=== PATIENT | male | born 1945 | race Caucasian/White ===

== ENCOUNTER 2018-09-29 01:25 | Outpatient (CLI) | payer MEDICARE, SELFPAY ==
--- NOTE | 2018-09-29 12:37 | DI.CT_ITS ---
SYMPTOMS/DIAGNOSIS: LEFT FACIAL PAIN AND HEARING LOSS, G89.[address]: There is mucus retention within several ethmoid sinuses. There is circumferential mucosal thickening of the maxillary sinuses and a mild amount of mucus in the frontal sinuses. The nasal cavity appears clear. The mastoid air cells are clear. The orbits are unremarkable. No gross abnormality is seen in the brain. IMPRESSION: Mucus retention within the ethmoid sinuses, the greatest on the right side. Milder mucosal thickening is seen elsewhere.
== END 2018-09-29 01:45 ==
PROVIDERS: PCP Emergency Medicine; Visit Provider Emergency Medicine
DX: R51 Headache (principal); H91.90 Unspecified hearing loss, unspecified ear; J34.89 Other specified disorders of nose and nasal sinuses
CPT/HCPCS: 70486

== ENCOUNTER 2020-04-06 02:39 | Outpatient (CLI) | payer MEDICARE, SELFPAY ==
--- NOTE | 2020-04-06 06:45 | DI.CT_ITS ---
EXAM: CT ABDOMEN W CLINICAL HISTORY: LUQ mass, swelling, lump, R19.02 TECHNIQUE: Imaging Protocol: Axial computed tomography images with coronal and sagittal reformatted images were created and reviewed CONTRAST MATERIAL: Intravenous: Omnipaque 350 Contrast volume:100 ml Contrast route:IV - Oral: yes COMPARISON: No exams were available for comparison FINDINGS: ABDOMEN: Lung Bases: Normal where visualized. Normal heart size. Liver: Normal density. Numerous cysts. Gallbladder and biliary tract: No radiodense calculus or dilation. Pancreas: Normal density, no abnormal calcifications or inflammatory process. Spleen: Normal size. 3.7 cm peripherally calcified cyst in the anterosuperior portion of the spleen. . Kidneys: Normal size, contour and axis. No radiodense stones or obstructive uropathy. No masses seen. Parapelvic cysts. Adrenal glands: No masses seen. Abdominal Aorta: Abdominal portion non-dilated. Mild calcification. Lymph nodes: Within normal limits. Bowel: There is a large diverticulum emanating from the 3rd portion of the duodenum, located inferior to the pancreas. Contains air and contrast material. There is a moderate to increased quantity of stool. The stomach is nearly empty but unremarkable. Bone: Degenerative changes in the spine. No lytic or blastic lesions. Soft tissues: No umbilical or abdominal wall hernias. IMPRESSION: No acute abnormality. Incidental findings as mentioned above. RADIATION DOSE DELIVERED: 393.8mGy.cm Total DLP DATA REPOSITORY: All CT scans at this facility are submitted to the National Radiology Data Registry (NRDR) Dose Index Registry (DIR) with the [employer] ([employer]). RADIATION OPTIMIZATION: All CT scans at this facility use at least one of these dose optimization te chniques: automated exposure control; mA and/or kV adjustment per patient size (includes targeted exa ms where dose is matched to clinical indication); or iterative reconstruction.
[2020-04-06] MEDS: Breeza Beverage 473 ML BTL PO (07:57)
[2020-04-06] MEDS: Omnipaque 350 MG/ML 50 ML BTL PO (07:58)
[2020-04-06 08:55] LABS: CREATININE 0.87 mg/dL (0.70-1.30)
[2020-04-06] MEDS: Omnipaque 350 MG/ML 100 ML BTL IJ (09:00)
== END 2020-04-06 02:59 ==
PROVIDERS: PCP Emergency Medicine; Visit Provider Emergency Medicine
DX: R19.02 Left upper quadrant abdominal swelling, mass and lump (principal); K76.89 Other specified diseases of liver; K57.12 Diverticulitis of small intestine without perforation or abscess without bleeding
CPT/HCPCS: 36415; 74160; 82565; J3490; Q9967